=== PATIENT | male | born 1930 | race Caucasian/White ===

== ENCOUNTER 2017-05-22 17:05 | Outpatient (CLI) | END 2017-05-22 17:06 | disposition short-term general hospital (02) | LOC: AMBL 17:05 | PROVIDERS: ATTEND Internal Medicine | DX: D58.2 Other hemoglobinopathies (principal) ==

== ENCOUNTER 2017-06-17 18:52 | Outpatient (CLI) | END 2017-06-17 18:53 | disposition short-term general hospital (02) | LOC: AMBL 18:52 | PROVIDERS: ATTEND Internal Medicine | DX: R10.30 Lower abdominal pain, unspecified (principal); R33.9 Retention of urine, unspecified ==

== ENCOUNTER 2017-07-06 21:30 | Outpatient (CLI) | END 2017-07-06 21:31 | disposition short-term general hospital (02) | LOC: AMBL 21:30 | PROVIDERS: ATTEND Internal Medicine Geriatric Medicine | DX: R52 Pain, unspecified (principal) ==